=== PATIENT | male | born 1980 | race Caucasian/White ===

== ENCOUNTER 2020-07-30 13:16 | Inpatient (IN) | payer OTHER ==
[2020-07-30 15:37] VITALS: BMI 30.3
[2020-07-30] MEDS ORDERED: MAGNESIUM CITRATE 300 ML BOTTLE PO PRN (16:04)
[2020-07-30] MEDS ORDERED: MAG HYDROX/AL HYDROX/SIMETH 30 ML UNIT-DOSE CUP PO PRN (16:04)
[2020-07-30] MEDS ORDERED: MENTHOL/PHENOL 1 EACH UD MM PRN (16:04)
[2020-07-30] MEDS ORDERED: IBUPROFEN 400 MG TABLET (FP) PO PRN (16:04)
[2020-07-30] MEDS ORDERED: MAGNESIUM HYDROX 2400MG/30ML ORAL SUSPENSION 30 ML CUP PO PRN (16:04)
[2020-07-30] MEDS ORDERED: ACETAMINOPHEN 325 MG TABLET (FP) PO PRN ×2 (16:04)
[2020-07-30] MEDS ORDERED: ONDANSETRON *ODT* 4 MG TABLET SL PRN (16:04)
[2020-07-30] MEDS ORDERED: chlordiazePOXIDE HCL 25 MG CAPSULE PO PRN (16:05)
[2020-07-30] MEDS: chlordiazePOXIDE HCL 25 MG CAPSULE PO SCH ×2 (16:50→22:29)
[2020-07-30] MEDS: hydrOXYzine PAMOATE 25 MG CAPSULE (FP) PO PRN (16:55)
[2020-07-30] MEDS: BISMUTH SUBSALICYLATE 524 MG/30 ML UD PO PRN (20:03)
[2020-07-30] MEDS: THIAMINE HCL 100 MG TABLET (FP) PO SCH (22:29)
[2020-07-30] MEDS: MELATONIN 5 MG TABLETS PO SCH (22:30)
[2020-07-31] MEDS: chlordiazePOXIDE HCL 25 MG CAPSULE PO SCH ×4 (05:25→22:21)
[2020-07-31 10:06] LABS: HEMATOCRIT 40.9 % (35.4-49); HEMOGLOBIN 14.1 GM/dL (11.7-16.9); MCH 33.9 pg (25.7-33.7); MCHC 34.5 g/dl (32.0-35.9); MEAN PLT VOLUME 9.8 fl (7.5-11.1); PLATELET COUNT 74 K/MM3 (134-434); RBC 4.17 M/mm3 (4.00-5.60); RDW 13.4 % (11.9-15.9); WHITE BLOOD COUNT 2.9 K/mm3 (4.0-10.0)
[2020-07-31 10:12] LABS: POTASSIUM 3.5 mmol/L (3.5-5.1)
[2020-07-31 10:20] LABS: ALBUMIN 3.6 g/dl (3.4-5.0); BLOOD UREA NITROGEN 10.8 mg/dL (7-18); CALCIUM 9.2 mg/dL (8.5-10.1)
[2020-07-31 10:23] LABS: CREATININE 0.8 mg/dL (0.55-1.3)
[2020-07-31 10:25] LABS: BILIRUBIN,TOTAL 1.9 mg/dL (0.2-1); TOT PROT 6.5 g/dl (6.4-8.2)
[2020-07-31] MEDS: PRENATAL VITAMINS W/ FOLIC ACID TABLET (FP) PO SCH (10:25)
[2020-07-31] MEDS: METHOCARBAMOL 500 MG TABLET PO PRN ×2 (10:28→22:27)
[2020-07-31] MEDS: LIDOCAINE 5% TOPICAL PATCH TP SCH (10:55)
[2020-07-31] MEDS ORDERED: PNEUMOCOCCAL 23 VACCINE 0.5 ML VIAL IM ONE (12:00)
[2020-07-31] MEDS ORDERED: PNEUMOC 13-VAL CONJ-DIP CRM/PF 0.5 ML DISP.SYRIN IM ONE (12:00)
[2020-07-31] MEDS: BISMUTH SUBSALICYLATE 524 MG/30 ML UD PO PRN ×2 (14:43→17:45)
[2020-07-31] MEDS: MELATONIN 5 MG TABLETS PO SCH (22:21)
[2020-07-31] MEDS: THIAMINE HCL 100 MG TABLET (FP) PO SCH (22:21)
[2020-07-31] MEDS: LIDOCAINE PATCH REMOVAL MC SCH (22:21)
[2020-07-31] MEDS: hydrOXYzine PAMOATE 25 MG CAPSULE (FP) PO PRN (22:23)
[2020-08-01] MEDS: chlordiazePOXIDE HCL 25 MG CAPSULE PO SCH ×4 (05:32→22:01)
[2020-08-01] MEDS: PRENATAL VITAMINS W/ FOLIC ACID TABLET (FP) PO SCH (10:20)
[2020-08-01] MEDS: LIDOCAINE 5% TOPICAL PATCH TP SCH (10:22)
[2020-08-01] MEDS: BISMUTH SUBSALICYLATE 524 MG/30 ML UD PO PRN (10:23)
[2020-08-01] MEDS: hydrOXYzine PAMOATE 25 MG CAPSULE (FP) PO PRN (22:02)
[2020-08-01] MEDS: MELATONIN 5 MG TABLETS PO SCH (22:02)
[2020-08-01] MEDS: LIDOCAINE PATCH REMOVAL MC SCH (22:02)
[2020-08-01] MEDS: THIAMINE HCL 100 MG TABLET (FP) PO SCH (22:02)
[2020-08-02] MEDS ORDERED: chlordiazePOXIDE HCL 10 MG CAPSULE PO PRN
[2020-08-02] MEDS: chlordiazePOXIDE HCL 10 MG CAPSULE PO SCH ×4 (05:41→22:22)
[2020-08-02 08:09] LABS: SARS-CoV-2 NAA Not Detected (Not Detected)
[2020-08-02] MEDS: PRENATAL VITAMINS W/ FOLIC ACID TABLET (FP) PO SCH (10:13)
[2020-08-02] MEDS: LIDOCAINE 5% TOPICAL PATCH TP SCH (10:15)
[2020-08-02 10:38] LABS: SGOT/AST 148 U/L (15-37); SGPT/ALT 173 U/L (13-61)
[2020-08-02] MEDS: LIDOCAINE PATCH REMOVAL MC SCH (22:22)
[2020-08-02] MEDS: MELATONIN 5 MG TABLETS PO SCH (22:22)
[2020-08-02] MEDS: THIAMINE HCL 100 MG TABLET (FP) PO SCH (22:22)
[2020-08-03] MEDS: hydrOXYzine PAMOATE 25 MG CAPSULE (FP) PO PRN ×2 (00:37→10:14)
[2020-08-03] MEDS: METHOCARBAMOL 500 MG TABLET PO PRN (02:01)
[2020-08-03] MEDS ORDERED: chlordiazePOXIDE HCL 10 MG CAPSULE PO SCH (05:00)
[2020-08-03 09:29] VITALS: PULSE 80
[2020-08-03] MEDS: PRENATAL VITAMINS W/ FOLIC ACID TABLET (FP) PO SCH (10:13)
[2020-08-03 10:16] LABS: HEMATOCRIT 39.2 % (35.4-49); HEMOGLOBIN 13.5 GM/dL (11.7-16.9); MCHC 34.4 g/dl (32.0-35.9); MEAN PLT VOLUME 11.4 fl (7.5-11.1); PLATELET COUNT 91 K/MM3 (134-434); RBC 3.96 M/mm3 (4.00-5.60); RDW 13.6 % (11.9-15.9)
[2020-08-03 10:20] LABS: INR 1.07 (0.83-1.09); PROTHROMBIN TIME (PATIENT) 12.9 SEC (9.7-13.0)
[2020-08-03] MEDS: LIDOCAINE 5% TOPICAL PATCH TP SCH (10:23)
[2020-08-03 10:24] LABS: SGOT/AST 179 U/L (15-37); SGPT/ALT 205 U/L (13-61)
[2020-08-03 13:15] VITALS: BP 140/96; TEMP 97.8
[2020-08-03] MEDS ORDERED: BACLOFEN 10 MG TABLET (FP) PO SCH (22:00)
[2020-08-04] MEDS ORDERED: chlordiazePOXIDE HCL 10 MG CAPSULE PO ONE (05:00)
== END 2020-08-03 14:34 | disposition other institution (70) | DRG 775 ==
LOC: YASAS 13:16 → Y6N 16:04
PROVIDERS: ADMIT Allergy & Immunology; ATTEND Allergy & Immunology
PROC: HZ2ZZZZ Detoxification Services for Substance Abuse Treatment (ICD-10-PCS; principal; 2020-07-30)
DX: F10.230 Alcohol dependence with withdrawal, uncomplicated (principal); D69.6 Thrombocytopenia, unspecified; I10 Essential (primary) hypertension; M17.0 Bilateral primary osteoarthritis of knee; M54.5 Low back pain; G89.29 Other chronic pain; R25.1 Tremor, unspecified; R74.8 Abnormal levels of other serum enzymes
CPT/HCPCS: 36415; 80053; 84450; 84460; 85027; 85610; 86780; 90732; C9803; G0009; U0003; U0005

== ENCOUNTER 2021-02-25 12:20 | Inpatient (IN) | payer OTHER ==
[2021-02-25 14:20] VITALS: BMI 33.6
[2021-02-25] MEDS ORDERED: BISMUTH SUBSALICYLATE 524 MG/30 ML PO PRN (15:49)
[2021-02-25] MEDS ORDERED: MAG HYDROX/AL HYDROX/SIMETH 30 ML UNIT-DOSE CUP PO PRN (15:49)
[2021-02-25] MEDS ORDERED: MENTHOL/PHENOL 1 EACH UD MM PRN (15:49)
[2021-02-25] MEDS ORDERED: MAGNESIUM CITRATE 300 ML BOTTLE PO PRN (15:49)
[2021-02-25] MEDS ORDERED: LORazepam 1 MG TABLET PO PRN (15:49)
[2021-02-25] MEDS ORDERED: NICOTINE 10 MG CARTRIDGE (INHALER) IH PRN (15:49)
[2021-02-25] MEDS ORDERED: ACETAMINOPHEN 325 MG TABLET (FP) PO PRN ×2 (15:49)
[2021-02-25] MEDS ORDERED: IBUPROFEN 400 MG TABLET (FP) PO PRN (15:49)
[2021-02-25] MEDS ORDERED: MAGNESIUM HYDROX 2400MG/30ML ORAL SUSPENSION 30 ML CUP PO PRN (15:49)
[2021-02-25] MEDS ORDERED: LORazepam 2 MG TABLET ONE (17:11)
[2021-02-25] MEDS ORDERED: hydrOXYzine PAMOATE 25 MG CAPSULE (FP) PO ONE (17:11)
[2021-02-25] MEDS ORDERED: ONDANSETRON *ODT* 4 MG TABLET ONE (17:12)
[2021-02-25] MEDS: ONDANSETRON *ODT* 4 MG TABLET SL PRN (17:14)
[2021-02-25] MEDS: LORazepam 2 MG TABLET PO SCH ×2 (17:15→22:18)
[2021-02-25] MEDS: hydrOXYzine PAMOATE 25 MG CAPSULE (FP) PO SCH ×2 (17:15→22:19)
[2021-02-25] MEDS: THIAMINE HCL 100 MG TABLET (FP) PO SCH (22:19)
[2021-02-25] MEDS: MELATONIN 5 MG TABLETS PO SCH (22:19)
[2021-02-25] MEDS: METHOCARBAMOL 500 MG TABLET PO PRN (22:20)
[2021-02-26] MEDS: LORazepam 2 MG TABLET PO SCH ×4 (06:21→22:19)
[2021-02-26] MEDS: hydrOXYzine PAMOATE 25 MG CAPSULE (FP) PO SCH ×5 (06:21→22:18)
[2021-02-26] MEDS: amLODIPine BESYLATE 10 MG TABLET (FP) PO SCH (10:26)
[2021-02-26] MEDS: PRENATAL VITAMINS W/ FOLIC ACID TABLET (FP) PO SCH (10:27)
[2021-02-26 11:37] LABS: HEMATOCRIT 41.3 % (35.4-49); HEMOGLOBIN 14.5 GM/dL (11.7-16.9); MCH 32.4 pg (25.7-33.7); MCHC 35.2 g/dl (32.0-35.9); MEAN CELL VOLUME 92.1 fl (80-96); MEAN PLT VOLUME 9.2 fl (7.5-11.1); PLATELET COUNT 176 10^3/uL (134-434); RBC 4.48 M/mm3 (4.00-5.60); RDW 13.2 % (11.9-15.9); WHITE BLOOD COUNT 6.3 K/mm3 (4.0-10.0)
[2021-02-26 12:00] LABS: ALBUMIN 3.4 g/dl (3.4-5.0); BLOOD UREA NITROGEN 13.8 mg/dL (7-18)
[2021-02-26 12:01] LABS: CALCIUM 8.6 mg/dL (8.5-10.1)
[2021-02-26 12:03] LABS: CREATININE 0.9 mg/dL (0.55-1.3)
[2021-02-26 12:04] LABS: BILIRUBIN,TOTAL 1.3 mg/dL (0.2-1)
[2021-02-26 12:06] LABS: TOT PROT 6.4 g/dl (6.4-8.2)
[2021-02-26] MEDS: THIAMINE HCL 100 MG TABLET (FP) PO SCH (22:18)
[2021-02-26] MEDS: MELATONIN 5 MG TABLETS PO SCH (22:18)
[2021-02-27] MEDS: LORazepam 1 MG TABLET PO SCH ×4 (07:12→22:04)
[2021-02-27] MEDS: hydrOXYzine PAMOATE 25 MG CAPSULE (FP) PO SCH ×5 (07:12→22:05)
[2021-02-27] MEDS: amLODIPine BESYLATE 10 MG TABLET (FP) PO SCH (11:04)
[2021-02-27] MEDS: PRENATAL VITAMINS W/ FOLIC ACID TABLET (FP) PO SCH (11:04)
[2021-02-27] MEDS: MELATONIN 5 MG TABLETS PO SCH (22:05)
[2021-02-27] MEDS: METHOCARBAMOL 500 MG TABLET PO PRN (22:05)
[2021-02-27] MEDS: THIAMINE HCL 100 MG TABLET (FP) PO SCH (22:05)
[2021-02-28] MEDS ORDERED: LORazepam 0.5 MG TABLET PO PRN
[2021-02-28] MEDS: hydrOXYzine PAMOATE 25 MG CAPSULE (FP) PO SCH ×5 (05:22→22:15)
[2021-02-28] MEDS: LORazepam 0.5 MG TABLET PO SCH ×4 (05:22→22:15)
[2021-02-28] MEDS: PRENATAL VITAMINS W/ FOLIC ACID TABLET (FP) PO SCH (10:20)
[2021-02-28] MEDS: amLODIPine BESYLATE 10 MG TABLET (FP) PO SCH (10:20)
[2021-02-28 10:43] LABS: BILIRUBIN,TOTAL 0.8 mg/dL (0.2-1)
[2021-02-28] MEDS: ONDANSETRON *ODT* 4 MG TABLET SL PRN (15:20)
[2021-02-28] MEDS: MELATONIN 5 MG TABLETS PO SCH (22:15)
[2021-02-28] MEDS: THIAMINE HCL 100 MG TABLET (FP) PO SCH (22:15)
[2021-02-28] MEDS: METHOCARBAMOL 500 MG TABLET PO PRN (22:16)
[2021-03-01] MEDS ORDERED: LORazepam 0.5 MG TABLET PO ONE (05:00)
[2021-03-01] MEDS: hydrOXYzine PAMOATE 25 MG CAPSULE (FP) PO SCH ×2 (06:19→10:04)
[2021-03-01 08:57] VITALS: BP 110/81; PULSE 96; TEMP 97.1
[2021-03-01] MEDS: PRENATAL VITAMINS W/ FOLIC ACID TABLET (FP) PO SCH (10:04)
[2021-03-01] MEDS: amLODIPine BESYLATE 10 MG TABLET (FP) PO SCH (10:04)
== END 2021-03-01 10:06 | disposition home or self-care (01) | DRG 775 ==
LOC: YASAS 12:20 → Y3N 16:40
PROVIDERS: ADMIT Allergy & Immunology; ATTEND Allergy & Immunology
PROC: HZ2ZZZZ Detoxification Services for Substance Abuse Treatment (ICD-10-PCS; principal; 2021-02-25)
DX: F10.230 Alcohol dependence with withdrawal, uncomplicated (principal); F12.20 Cannabis dependence, uncomplicated; F17.210 Nicotine dependence, cigarettes, uncomplicated; F41.9 Anxiety disorder, unspecified; I10 Essential (primary) hypertension; M17.0 Bilateral primary osteoarthritis of knee; R74.01 Elevation of levels of liver transaminase levels; R74.8 Abnormal levels of other serum enzymes
CPT/HCPCS: 36415; 80053; 82247; 84450; 84460; 85027; 86780; C9803; Q0162; U0003; U0005